=== PATIENT | male | born 1945 ===

== ENCOUNTER 2019-06-16 05:40 | Day surgery (SDC) | payer OTHER ==
[~2019-06-16 05:40] MED LIST: GLIPIZIDE5 MG PO; IRBESARTAN-HCT1 EAC1 PO; METFORMIN HCL500 MG PO; NEURONTIN800 MG PO; NORVASC2.5 M1 PO; PRESERVISION A1 EAC2 PO; ZOCOR20 MG PO
== END 2019-06-16 10:15 | disposition home or self-care (01) ==
LOC: CIR.AMB 05:40
DX: G56.01 Carpal tunnel syndrome, right upper limb (principal); M65.331 Trigger finger, right middle finger; M65.341 Trigger finger, right ring finger